=== PATIENT | male | born 1965 | race Caucasian/White ===

== ENCOUNTER 2017-03-03 00:15 | Observation (INO) ==
[2017-03-03] MEDS ORDERED: Nitroglycerin 1 INCH/GM PACKET TP ONE (00:23)
[2017-03-03] MEDS ORDERED: Aspirin 81 MG TAB.CHEW PO ONE (00:23)
[2017-03-03] MEDS ORDERED: methylPREDNISolone 125 MG/2 ML VIAL IVP ONE (00:26)
[2017-03-03] MEDS ORDERED: Ipratropium/Albuterol Neb 3 ML IH ONE (00:27)
--- NOTE | 2017-03-03 00:30 | Emergency Department Note ---
Disposition Clinical Impression: COPD exacerbation Chest pain Qualifiers: Chest pain type: unspecified Qualified Code(s): R07.9 - Chest pain, unspecified Disposition: Admitted As Inpatient Condition: Good Time of Disposition: 02:11 Chest Pain HPI - General Chief Complaint: ED Chest Pain Stated Complaint: chest pain Source: patient, EMS Limitations: no limitations - History of Present Illness HPI Narrative: Patient presents to emergency department for evaluation of wheezing and shortness of breath and chest pain. He states that is not really sure which symptom was the initial symptom. He states that he has noticed throughout the day today some wheezing and shortness of breath but he also is noted increasing generalized chest pressure without obvious exacerbating or alleviating features. He denies radiation or migration of the pain. He states he has chronic cough that is unchanged. Nonproductive. Denies hemoptysis. Denies associated nausea vomiting or diaphoresis. Denies lower extremity edema or calf discomfort. Denies recent steroid or antibiotic use. Severity scale (1-10): 7 - Related Data Home Medications Medication Instructions Recorded Confirmed Albuterol Sulfate [Albuterol 2 puff IH Q4-6H PRN 03/03/17 03/03/17 Inhaler] Atorvastatin [Lipitor] 10 mg PO HS 03/03/17 03/03/17 Budesonide/Formoterol 80/4.5 03/03/17 [Symbicort 80/4.5] Carvedilol [Coreg] 03/03/17 Gabapentin [Neurontin] 600 mg PO 03/03/17 OxyCODONE/APAP 10/325 [Percocet 1 each PO Q4HR PRN 03/03/17 03/03/17 10/325 MG] Ticagrelor [Brilinta] 90 mg PO BID 03/03/17 03/03/17 Allergies Allergy/AdvReac Type Severity Reaction Status Date / Time Hydromorphone [From Dilaudid] Allergy See Verified 03/03/17 00:19 Comments Constitutional: Denies: fever, chills Eyes: Denies: vision change ENT ED: Reports: congestion. Denies: ear pain, throat pain Cardiovascular: Reports: as per HPI Respiratory: Reports: as per HPI Gastrointestinal: Denies: abdominal pain, nausea, vomiting, diarrhea Musculoskeletal: Denies: back pain, neck pain, joint swelling Integumentary: Denies: rash Neurological: Denies: headache, weakness, numbness, paresthesias Psychiatric: Denies: anxiety, depression Chest Pain PMH - Past Medical History Medical history: Reports: arthritis, COPD, hyperlipidemia, hypertension, myocardial infarction, other Surgical history: Reports: angioplasty/stent Psychiatric history: Reports: no psych history - Social History Smoking Status: Current every day smoker Alcohol use: Reports: none Drug use: Reports: none Physical Exam - General Limitations: no limitations General appearance: alert, in no apparent distress - Head Head exam: atraumatic - Eye Eye exam: Present: PERRL, EOMI - ENT ENT exam: normal exam, normal oropharynx, TM's normal bilaterally - Neck Neck exam: Present: normal inspection - Respiratory Respiratory exam: Present: wheezes, other (Speaking in full sentences). Absent : respiratory distress, stridor, accessory muscle use, prolonged expiratory phase - Cardiovascular Cardiovascular exam: Present: regular rate, normal rhythm, normal heart sounds - Abdominal Exam Abdominal exam: Present: soft, Non-Tender, normal bowel sounds - Extremities Exam Extremities exam: Present: normal inspection, full ROM, normal capillary refill. Absent: pedal edema, joint swelling, calf tenderness - Expanded Lower Extremity Exam Neurovascular/Tendon exam: Present: normal capillary refill. Absent: pulse deficit - Neurological Exam Neurological exam: Present: alert, oriented X3, CN II-XII intact - Psychiatric Psychiatric exam: Present: normal affect, normal mood - Skin Skin exam: Present: warm, dry, intact, normal color. Absent: rash Course Vital Signs Temperature 98.0 F 03/03/17 00:17 Pulse Rate 82 03/03/17 00:17 Respiratory Rate 14 03/03/17 00:17 Blood Pressure 131/42 03/03/17 00:17 O2 Sat by Pulse Oximetry 95 03/03/17 00:17 Temperature 98.0 F 03/03/17 00:17 Pulse Rate 77 03/03/17 01:51 Respiratory Rate 20 03/03/17 01:51 Blood Pressure 122/61 03/03/17 01:51 O2 Sat by Pulse Oximetry 94 03/03/17 01:56 Oxygen Delivery Oxygen Delivery Nasal Cannula Chest Pain - [facility] Narrative Medical decision making narrative: Time 0208: Patient resting comfortably and feels somewhat improved. Patient presents with nonspecific chest pain as well as shortness of breath. His exam was consistent with a COPD exacerbation. He has a significant cardiac history. Patient will be admitted for ongoing treatment of his COPD exacerbation as well as further evaluation of his chest pain though I feel that this is likely related to COPD exacerbation and less likely a cardiac cause. I find no indication of pulmonary embolism or acute aortic process. - Lab Data Lab results reviewed: Yes I reviewed the patient's lab results. Result diagrams: 03/03/17 00:20 03/03/17 00:20 Lab Results 03/03/17 03/03/17 03/03/17 Range/Units 00:20 00:20 00:20 WBC 5.5 (4.3-11.1) K/mcL RBC 5.09 (4.19-5.50) M/mcL Hgb 14.8 (12.9-16.9) g/dL Hct 45.4 (37.5-50.1) % MCV 89.2 (83.0-100.0) fL MCH 29.1 (28.0-33.3) pg MCHC 32.6 (31.6-35.5) g/dL RDW 13.0 (11.5-14.5) % Plt Count 225 (140-400) K/mcL MPV 10.5 (9.4-12.4) fL Immature Gran % 0.4 (0-4) % Seg Neutrophils % 68.0 % Lymphocytes % 15.2 % Monocytes % 7.9 % Eosinophils % 7.9 % Basophils % 0.6 % Neutrophils # 3.7 (1.6-8.9) K/mcL Lymphocytes # 0.8 (0.6-4.6) K/mcL Monocytes # 0.4 (0.0-1.3) K/mcL Eosinophils # 0.4 (0.0-0.6) K/mcL Basophils # 0.0 (0.0-0.2) K/mcL PT 11.0 (9.4-12.1) Seconds INR 1.0 APTT 33.4 (26.0-36.0) Seconds Sodium (136-145) mEq/L Potassium (3.5-4.5) mEq/L Chloride (98-109) mEq/L Carbon Dioxide (19-29) mEq/L BUN (8-26) mg/dL Creatinine (0.72-1.25) mg/dL Est GFR ( Amer) (> 60) Est GFR (Non-Af Amer) (> 60) BUN/Creatinine Ratio (6-26) Glucose (70-99) mg/dL Calculated Osmolality (280-300) Calcium (8.6-10.8) mg/dL Total Bilirubin 0.2 (0.2-1.2) mg/dL Direct Bilirubin 0.1 (0.0-0.5) mg/dL Indirect Bilirubin 0.1 (0.0-1.2) mg/dL AST 19 (5-34) Units/L ALT 16 (0-55) Units/L Alkaline Phosphatase 64 (38-126) Units/L Troponin I (0-0.03) ng/mL Serum Total Protein 7.0 (6.0-8.3) g/dL Albumin 3.6 (3.5-5.0) g/dL Globulin 3.4 (2.4-3.5) g/dL Albumin/Globulin Ratio 1.1 (1.1-2.2) Lipase 25 (8-78) Units/L 03/03/17 03/03/17 Range/Units 00:20 00:20 WBC (4.3-11.1) K/mcL RBC (4.19-5.50) M/mcL Hgb (12.9-16.9) g/dL Hct (37.5-50.1) % MCV (83.0-100.0) fL MCH (28.0-33.3) pg MCHC (31.6-35.5) g/dL RDW (11.5-14.5) % Plt Count (140-400) K/mcL MPV (9.4-12.4) fL Immature Gran % (0-4) % Seg Neutrophils % % Lymphocytes % % Monocytes % % Eosinophils % % Basophils % % Neutrophils # (1.6-8.9) K/mcL Lymphocytes # (0.6-4.6) K/mcL Monocytes # (0.0-1.3) K/mcL Eosinophils # (0.0-0.6) K/mcL Basophils # (0.0-0.2) K/mcL PT (9.4-12.1) Seconds INR APTT (26.0-36.0) Seconds Sodium 143 (136-145) mEq/L Potassium 4.2 (3.5-4.5) mEq/L Chloride 102 (98-109) mEq/L Carbon Dioxide 32 H (19-29) mEq/L BUN 10 (8-26) mg/dL Creatinine 0.67 L (0.72-1.25) mg/dL Est GFR ( Amer) > 60 (> 60) Est GFR (Non-Af Amer) > 60 (> 60) BUN/Creatinine Ratio 15 (6-26) Glucose 86 (70-99) mg/dL Calculated Osmolality 294 (280-300) Calcium 9.1 (8.6-10.8) mg/dL Total Bilirubin (0.2-1.2) mg/dL Direct Bilirubin (0.0-0.5) mg/dL Indirect Bilirubin (0.0-1.2) mg/dL AST (5-34) Units/L ALT (0-55) Units/L Alkaline Phosphatase (38-126) Units/L Troponin I 0.01 (0-0.03) ng/mL Serum Total Protein (6.0-8.3) g/dL Albumin (3.5-5.0) g/dL Globulin (2.4-3.5) g/dL Albumin/Globulin Ratio (1.1-2.2) Lipase (8-78) Units/L ITS Impressions Chest X-Ray 03/03/17 00:23 IMPRESSION: No acute cardiopulmonary process. D/ / Vinnie Lopez MD / Vinnie Lopez MD Interpreting Provider: Vinnie Lopez MD - Radiology Data Radiology results reviewed: Yes I reviewed the patient's radiology results. - EKG Data EKG attestation: Yes I reviewed and interpreted this EKG. EKG shows normal: sinus rhythm (Normal sinus rhythm at a rate of 72. Left axis deviation. Nonspecific changes without evidence of acute ST segment or T-wave change.)
[2017-03-03 00:51] LABS: Basophils % 0.6 %; Eosinophils # 0.4 K/mcL (0.0-0.6); Eosinophils % 7.9 %; Hematocrit 45.4 % (37.5-50.1); Hemoglobin 14.8 g/dL (12.9-16.9); Immature Granulocytes % 0.4 % (0-4); Lymphocytes # 0.8 K/mcL (0.6-4.6); Lymphocytes % 15.2 %; Mean Corpuscular HGB Conc 32.6 g/dL (31.6-35.5); Mean Corpuscular Hemoglobin 29.1 pg (28.0-33.3); Mean Corpuscular Volume 89.2 fL (83.0-100.0); Mean Platelet Volume 10.5 fL (9.4-12.4); Monocytes # 0.4 K/mcL (0.0-1.3); Monocytes % 7.9 %; Neutrophils # 3.7 K/mcL (1.6-8.9); Platelet Count 225 K/mcL (140-400); Red Blood Count 5.09 M/mcL (4.19-5.50)
[2017-03-03 00:58] LABS: Activated Partial Thrombo Time 33.4 Seconds (26.0-36.0)
[2017-03-03 01:04] LABS: BUN/Creatinine Ratio 15 (6-26); Blood Urea Nitrogen 10 mg/dL (8-26); Calcium 9.1 mg/dL (8.6-10.8); Carbon Dioxide 32 mEq/L (19-29); Chloride 102 mEq/L (98-109); Glucose 86 mg/dL (70-99); Osmolality,Calculated 294 (280-300); Potassium 4.2 mEq/L (3.5-4.5); Sodium 143 mEq/L (136-145); eGFR For African Americans > 60 (> 60); eGFR For Non-African Americans > 60 (> 60)
[2017-03-03 01:54] LABS: Albumin 3.6 g/dL (3.5-5.0); Albumin/Globulin Ratio 1.1 (1.1-2.2); Bilirubin,Direct 0.1 mg/dL (0.0-0.5); Bilirubin,Indirect 0.1 mg/dL (0.0-1.2); Bilirubin,Total 0.2 mg/dL (0.2-1.2); Globulin 3.4 g/dL (2.4-3.5)
[2017-03-03] MEDS ORDERED: Levofloxacin 750 MG/150 ML 750 MG/150 ML BAG IVPB ONE (02:07)
[2017-03-03] MEDS: *HR* OxyCODONE/APAP 10/325 TABLET PO PRN ×4 (03:54→21:41)
[2017-03-03] MEDS: *HR* Ticagrelor 90 MG TABLET PO SCH ×2 (09:16→21:35)
--- NOTE | 2017-03-03 12:03 | Internal Med History&Physical ---
Date of Encounter: 03/03/17 Time of Encounter: 11:30 Assessment and Plan (1) Dyspnea Current visit: Yes Status: Acute Etiology not determined. Will order d-dimer to screen for pulmonary embolism. Order BN peptide to evaluate for heart failure. Qualifiers: Dyspnea type: shortness of breath Qualified Code(s): R06.02 - Shortness of breath (2) Weight loss Current visit: Yes Status: Acute We will order TSH to further evaluate. We will also order CT of chest abdomen and pelvis. (3) Chest pain Current visit: Yes Status: Acute Repeat cardiac enzymes were ordered through emergency room. Qualifiers: Chest pain type: unspecified Qualified Code(s): R07.9 - Chest pain, unspecified Internal Medicine - H&P: HPI Chief complaint: Dyspnea and chest pain Admitted From: Home Plans for Post Hospital Care: Home History of present illness: Mr. Mcqueen is a 52 year old male who came to emergency room stating he had sudden onset dyspnea with chest pain while at leisure approximately 6 PM 2016. He rates the pain at level 8/10. He states the pain felt like he was "punched" in his chest. It lasted a few seconds and then gradually lessened. He thinks he had a previous similar pain June 2016 when he was told he had an DC and was hospitalized at [facility] then transferred to [facility] where a single stent was placed. He has not had significant chest pain since. Cardiovascular history significant otherwise for hypertension. He denies heart failure DVT or pulmonary embolus. His respiratory history significant for having smoked since age 16 up to 2 packs per day. He has a diagnosis of COPD. He had oxygen in the home in the past but states it was removed several months ago. Past Med Surg Social Fam HX - Past Medical History Medical history: arthritis, COPD, hyperlipidemia, hypertension, myocardial infarction, other Psychiatric history: no psych history - Past Surgical History Surgical History: angioplasty/stent - Social History Smoking Status: Current every day smoker Packs per day: 1/2 Smokeless Tobacco Status: No Alcohol use: none Drug use: none Internal Medicine - H&P: Meds Albuterol Sulfate [Albuterol Inhaler] 2 puff IH Q4-6H PRN 03/03/17 [History] Atorvastatin [Lipitor] 10 mg PO HS 03/03/17 [History] Budesonide/Formoterol 80/4.5 [Symbicort 80/4.5] 03/03/17 [History] Carvedilol [Coreg] 03/03/17 [History] Gabapentin [Neurontin] 600 mg PO 03/03/17 [History] OxyCODONE/APAP 10/325 [Percocet 10/325 MG] 1 each PO Q4HR PRN 03/03/17 [History] Ticagrelor [Brilinta] 90 mg PO BID 03/03/17 [History] Allergies Hydromorphone [From Dilaudid] Allergy (Verified 03/03/17 00:19) See Comments "makes my skin Crawl" All Systems PM: A 10-system review of systems was performed and is negative for pertinent findings except as documented above in the HPI. Review of systems: Gen.: He states his weight has decreased approximately 30 pounds in the past year, unintentionally Cardiovascular: As per history of present illness Respiratory: As per history of present illness GI: He has had cholecystectomy. He denies disorders of his liver or exocrine pancreas : He denies hematuria dysuria or kidney stones Neurologic: He denies large distribution strokes or seizures. Endocrine: He has hyperlipidemia but denies diabetes or thyroid disease Hematology/oncology: Denies blood disorders cancers or anemia Psychiatric: He has feelings of anxiety when significant dyspnea occurs. He denies other mental health issues Musk skeletal: He has DJD and degenerative disc disease. He has had 2 back surgeries. One surgery resulted in injury to the nerves to his right leg resulting in foot drop. He denies other bone joint or muscle disorders. - Constitutional Vitals: Temp Pulse Resp BP Pulse Ox 97.6 F 83 18 123/82 94 03/03/17 10:46 03/03/17 10:46 03/03/17 10:46 03/03/17 10:46 03/03/17 10:46 Exam: Gen.: He is a well-developed lean male who appears in mild respiratory distress at present time HEENT: Head is atraumatic and normocephalic. Eyes: EOMI. There is no scleral icterus. Mouth: Mucosa is moist. Neck: Supple and nontender. There is no thyromegaly or adenopathy noted. Heart: Regular without murmurs gallops or ectopics Lungs: No wheezes or crackles are heard. Abdomen: Soft and nontender. No masses or guarding noted. Extremities: There is no cyanosis edema clubbing noted. He has severe atrophy of the right calf muscles. He has minimal DJD changes of his hands. Dorsalis pedis and posterior tibial pulses are trace palpable bilaterally. His feet are warm to touch. Neurologic: Mental status: He is talkative and a good historian. Cranial nerves : Smile is symmetric. Forehead wrinkles bilaterally. Tongue protrudes midline. EOMI. Motor: There is no pronator drift. He has right foot drop area and Cerebellar: Finger to nose is intact bilaterally. Skin: Warm and dry Internal Med - H&P Results - Labs CBC & Chem 7: 03/03/17 00:20 03/03/17 00:20 Labs: Cardiac Enzymes 03/03/17 03/03/17 Range/Units 04:37 09:51 Troponin I 0.01 0.01 (0-0.03) ng/mL
[2017-03-03] MEDS: Albuterol 2.5 MG/3 ML NEBULIZER IH PRN (17:20)
[2017-03-04] MEDS: *HR* OxyCODONE/APAP 10/325 TABLET PO PRN ×3 (01:51→10:45)
[2017-03-04] MEDS: Albuterol 2.5 MG/3 ML NEBULIZER IH PRN ×2 (04:11→10:31)
[2017-03-04 06:21] LABS: Basophils % 0.1 %; Eosinophils # 0.1 K/mcL (0.0-0.6); Eosinophils % 0.8 %; Hematocrit 42.9 % (37.5-50.1); Hemoglobin 13.8 g/dL (12.9-16.9); Immature Granulocytes % 0.3 % (0-4); Lymphocytes # 1.6 K/mcL (0.6-4.6); Lymphocytes % 19.8 %; Mean Corpuscular HGB Conc 32.2 g/dL (31.6-35.5); Mean Corpuscular Hemoglobin 28.8 pg (28.0-33.3); Mean Corpuscular Volume 89.4 fL (83.0-100.0); Mean Platelet Volume 10.6 fL (9.4-12.4); Monocytes # 0.6 K/mcL (0.0-1.3); Monocytes % 7.2 %; Neutrophils # 5.7 K/mcL (1.6-8.9); Platelet Count 225 K/mcL (140-400); Red Cell Distribution Width 13.2 % (11.5-14.5); Segmented Neutrophils % 71.8 %
[2017-03-04 07:04] VITALS: BP 117/63
--- NOTE | 2017-03-04 09:23 | Discharge Summary ---
Date of Encounter: 03/04/17 Time of Encounter: 09:10 - Discharge Diagnosis (1) Dyspnea Priority: Primary Status: Acute Qualifiers: Dyspnea type: shortness of breath Qualified Code(s): R06.02 - Shortness of breath (2) Weight loss Priority: Secondary Status: Acute (3) Chest pain Priority: Secondary Status: Acute Qualifiers: Chest pain type: unspecified Qualified Code(s): R07.9 - Chest pain, unspecified - Discharge Medications Home Medications: Albuterol Sulfate [Albuterol Inhaler] 2 puff IH Q4-6H PRN 03/03/17 [History] Atorvastatin [Lipitor] 10 mg PO HS 03/03/17 [History] Budesonide/Formoterol 80/4.5 [Symbicort 80/4.5] 03/03/17 [History] Carvedilol [Coreg] 03/03/17 [History] Gabapentin [Neurontin] 600 mg PO 03/03/17 [History] OxyCODONE/APAP 10/325 [Percocet 10/325 MG] 1 each PO Q4HR PRN 03/03/17 [History] Ticagrelor [Brilinta] 90 mg PO BID 03/03/17 [History] Allergies/Adverse Reactions: Allergies Hydromorphone [From Dilaudid] Allergy (Verified 03/03/17 00:19) See Comments "makes my skin Crawl" Procedures/tests Complete & Pending: Procedures Performed prior 72 hours Category Date Time Status CT abd pelvis wo no iv no oral [CT] Routine Cat Scan 03/03/17 15:[address] chest wo con [CT] Routine Cat Scan 03/03/17 15:22 Completed Date of admission: 03/03/17 02:29 Primary care physician: Brigid Atkinson CNP - Patient Status Disposition: Home, Self-Care Condition: Good Functional capacity at discharge: independent ambulation Overall status at discharge: patient is progressing back to baseline - Discharge Instructions Follow Up With: Brigid Atkinson CNP [Primary Care Provider] - 1 week Forms: ED Satisfaction Letter - Diet and Activity Activity: resume usual activities as tolerated Diet: advance to your usual diet Hospital course: Mr. Mcqueen is a 52 year old male who came to emergency room stating he had sudden onset dyspnea with chest pain while at leisure approximately 6 PM 2016. He rates the pain at level 8/10. He states the pain felt like he was "punched" in his chest. It lasted a few seconds and then gradually lessened. He thinks he had a previous similar pain June 2016 when he was told he had an MA and was hospitalized at [place] then transferred to [facility] where a single stent was placed. He has not had significant chest pain since. He was evaluated in emergency room and admitted to [facility] for ongoing care needs. Initial orders were written by the emergency room physician. I saw him on March 03 and performed the history and physical. Repeat cardiac enzymes showed no evidence of myocardial damage. When I saw him I did not think pain was likely to be of myocardial ischemic origin. A d-dimer was ordered with result of 509 which is in the acceptable range for his age. A chest, abdomen, and pelvis CT was done without contrast. There were multiple filling defects in the airways felt to likely be secretions but given his history of smoking and weight loss endobronchial lesion should be considered. There was recommendation for direct visualization by bronchoscopy when the patient was able. I will let his PCP follow-up on this. TSH was normal at 0.571. Repeat CBC showed persistent normal WBC without left shift. He remained afebrile and vital signs were stable otherwise. When I saw him on March 04 I felt he was stable for discharge home. He will have room-air oximeter checked on a 6 minute walk prior to discharge. He will follow with his PCP within one week. I encouraged him to discontinue smoking. - Time Spent with Patient Total time spent providing and/or coordinating discharge services: - Constitutional Vitals: Temp Pulse Resp BP Pulse Ox 97.8 F 60 20 117/63 96 03/04/17 06:20 03/04/17 06:20 03/04/17 06:20 03/04/17 06:20 03/04/17 08:07
--- NOTE | 2017-03-04 11:52 | Electrocardiograph Report ---
[place] [id number] Test Date: 2017-03-03 Pat Name: Nathan Mcqueen Department: 9201 Room: [facility] Gender: M Lead Loader: : 1965 Requested By: Chapincito Vázquez Order Number: [id number] Reading MD: Nate Saunders MD Measurements Intervals Stanley Rate: 72 P: -16 WI: 140 QRS: -32 QRSD: 102 T: -8 QT: 367 QTc: 392 Interpretive Statements SINUS RHYTHM MARKED LEFT AXIS DEVIATION BASELINE ARTIFACT Electronically Signed On 03-04-2017 11:50:20 EDT by Nate Saunders MD
[2017-03-04] MEDS ORDERED: Gabapentin 300 MG CAPSULE PO SCH (15:00)
== END 2017-03-04 10:59 | disposition home or self-care (01) ==
LOC: EMEROOPIK 00:15 → INPPIK 00:15
PROVIDERS: ADMIT Internal Medicine; ATTEND Internal Medicine